=== PATIENT | female | born 1950 | race Caucasian/White ===

== ENCOUNTER → 2017-02-23 | Day surgery (SDC) | payer MEDICARE, MEDICAID ==
[2017-02-23 08:24] LABS: HEMOGLOBIN 11.5 g/dL (12.2-16.2); LYMPH # 1.6 K/mm3 (0.7-4.5); LYMPH % 16.7 % (10-50.0)
[2017-02-23 08:27] LABS: BUN 17 mg/dL (7-18)
[2017-02-23 08:29] LABS: GFR (ESTIMATED) 62 ML/MIN (59-)
--- NOTE | 2017-02-23 14:38 | RADIOLOGY REPORT PS360 ---
CARDIAC CATHETERIZATION DATE OF CATHETERIZATION:02/23/2017 11:50 AM PROCEDURES: 1. Selective coronary angiogram 2. Drug-eluting stent deployment to the mid circumflex artery INDICATION FOR TEST: 1. Class IV angina pectoris 2. Coronary artery disease 3. Usage of 3 antianginal medications with persistent class IV angina Informed consent was obtained prior to the procedure. COMPLICATIONS: None ESTIMATED BLOOD LOSS: Less than 10 ml. TECHNIQUE: One percent lidocaine used to anesthetize the right anterior aspect of the right wrist right radial artery was accessed via the Seldinger technique and a 6 Moroccan hydrophilic sheath was placed in the right radial artery. 2.5 mg of verapamil and 1000 mcg of nitroglycerin was administered intra-arterially. A Tig catheter was used to perform selective angiography of the right coronary artery and nonselective of the left main artery. Following diagnostic angiography 7000 units of heparin was administered intravenously. The ACT was out of range greater than 400. A 6 Moroccan JL 3.5 guide catheter was used intubate the left main artery and the BMW wire was used to traverse the stenosis in the circumflex artery. A 2 mm x 12 mm balloon was taken to 16 and 18 moncho reducing the stenosis to 10%. A 2.25 x 18 mm resolute Apolinar stent was placed in the mid circumflex artery and deployed at 16 moncho. Following angiography and stent deployment 100 mcg of nitroglycerin was administered which demonstrated a persistent distal stenosis. An additional 2.25 x 12 mm resolute Apolinar stent was then deployed at 16 moncho distal to the first stent yet still overlapping the stent. Excellent angiographic results were obtained. At the beginning of the procedure CONCHIS 2. Flow was present at the end of the procedure CONCHIS-3 flow was present. The closing ACT was out of range. Patient was given Brilinta 180 mg on the table. The sheath was removed good hemostasis was achieved using TR banding patient transferred the postop holding are stable condition ANGIOGRAPHIC RESULTS: 1. The left main artery normal 2. The left anterior descending artery has mild nonflow limiting disease mid vessel 20% stenoses 3. The circumflex artery is non dominant and has mid vessel sequential greater than 90% stenoses of CONCHIS 4. 2. Flow down the vessel 5. The right coronary artery is a dominant vessel and has proximal 10% stenosis followed by mid vessel stent which is widely patent free of in-stent restenosis. The distal vessel has mild luminal irregularities 6. The LEE ventriculogram reveals not performed The left ventricular end-diastolic pressure not obtained IMPRESSION: 1. 2 vessel coronary artery disease with a widely patent stent in the mid dominant right coronary artery with minimal in-stent restenosis 2. Severe disease accompanied by CONCHIS II flow down the circumflex artery 3. Successful stenting of the mid circumflex artery tandem greater than 90% lesions reduced to 0% with 2 drug-eluting stents with interval improvement to CONCHIS-3 flow 4. Mild nonflow limiting LAD disease PLAN: 1. Plavix and aspirin 2. Restart Coumadin for atrial fibrillation. 3. In 30 days I would recommend discontinuing aspirin and using dual treatment with Plavix and Coumadin 4. Patient can be rescheduled for right heart catheter from the right groin at another time depending if her symptomatology improves with stenting of the circumflex artery. Patient is known to have moderate pulmonary hypertension
[2017-02-23 18:11] VITALS: BP 122/57
== END ==
LOC: CATHLAB 07:45
PROVIDERS: Internal Medicine
PROC: B2111ZZ Fluoroscopy of Multiple Coronary Arteries using Low Osmolar Contrast (ICD-10-PCS; 2017-02-23)
PROC: B2151ZZ Fluoroscopy of Left Heart using Low Osmolar Contrast (ICD-10-PCS; 2017-02-23)
PROC: 027034Z Dilation of Coronary Artery, One Artery with Drug-eluting Intraluminal Device, Percutaneous Approach (ICD-10-PCS; 2017-02-23)
PROC: 4A023N7 Measurement of Cardiac Sampling and Pressure, Left Heart, Percutaneous Approach (ICD-10-PCS; principal; 2017-02-23 10:00)
DX: I25.119 Atherosclerotic heart disease of native coronary artery with unspecified angina pectoris (principal); Z95.5 Presence of coronary angioplasty implant and graft; I48.91 Unspecified atrial fibrillation; Z79.01 Long term (current) use of anticoagulants
CPT/HCPCS: C1725; C1769; C1876; J1644; J2405; Q9967